=== PATIENT | male | born 1975 | race African-American/Black ===

== ENCOUNTER 2020-04-04 22:03 | Emergency (ER) | payer SELFPAY ==
[~2020-04-04] VITALS: Ht 180.3 cm; Wt 127.0 kg
[2020-04-04 22:22] VITALS: BP 161/105
--- NOTE | 2020-04-04 22:49 | NUR ---
45 Y/O MALE CAME IN TO ER WITH COMPLAINTS OF LOWER BACK PAIN. 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 PAIN SUBSIDES WHEN SITTING/RESTING BUT WORSENS WITH LYING DOWN. REPORTS USING ICY HOT AND TYLENOL WITH MINIMAL RELIEF. REPORTS STRAINING BACK AT WORK LAST FRIDAY. NO PAST MEDICAL HISTORY, NO ALLERGIES. ASKING FOR DOCTORS NOTE TO BE EXCUSED FROM WORK FOR A WEEK.
[2020-04-04 23:51] VITALS: BP 147/95
--- NOTE | 2020-04-04 23:51 | NUR ---
Patient discharged with v/s stable. Written and verbal after care instructions given and explained. Patient alert, oriented and verbalized understanding of instructions. Ambulatory with steady gait. All questions addressed prior to discharge. ID band removed. Patient advised to follow up with PMD. Rx of FLEXERIL 10MG, AND TORADOL 10 MG given. Patient educated on indication of medication including possible reaction and side effects. Opportunity to ask questions provided and answered.
== END 2020-04-04 23:51 | disposition home or self-care (01) ==
LOC: MED 22:03
DX: M54.5 Low back pain (principal)
CPT/HCPCS: 99281; 99283

== ENCOUNTER 2022-03-28 14:12 | Emergency (ER) | payer SELFPAY ==
[~2022-03-28] VITALS: Ht 182.9 cm; Wt 130.6 kg
[2022-03-28 14:30] VITALS: BP 152/103
--- NOTE | 2022-03-28 14:35 | NUR ---
PT AMB TO BED 3
[2022-03-28 14:44] VITALS: BP 152/103
--- NOTE | 2022-03-28 14:44 | NUR ---
47/M WALKED IN C/O R KNEE PAIN X 1 MONTH. DENIES TRAUMA. STATES 710 PAIN. AAOX4, AMBULATORY.
[2022-03-28] MEDS ORDERED: ACETAMINOPHEN 325 MG TAB PO ONE (14:50)
--- NOTE | 2022-03-28 16:05 | NUR ---
Patient discharged with v/s stable. Written and verbal after care instructions given and explained. Patient verbalized understanding. Ambulatory with steady gait. All questions addressed prior to discharge. Advised to follow up with PMD.
== END 2022-03-28 16:05 | disposition home or self-care (01) ==
LOC: MED 14:12
DX: G89.29 Other chronic pain (principal); M25.561 Pain in right knee
CPT/HCPCS: 73562; 99283

== ENCOUNTER 2022-04-18 17:57 | Emergency (ER) | payer OTHER ==
[~2022-04-18] VITALS: Ht 182.9 cm; Wt 120.2 kg
[2022-04-18 19:30] VITALS: BP 137/84
--- NOTE | 2022-04-18 19:37 | NUR ---
TO LOBBY FOLLOWING TRIAGE
[2022-04-18] MEDS ORDERED: HYDROcodone/APAP 5/325 MG 1 TAB TAB PO ONE (20:00)
[2022-04-18] MEDS ORDERED: LID5T TP (21:09)
[2022-04-18] MEDS ORDERED: HYDROcodone/APAP 5/325 MG 1 TAB TAB ONE (21:48)
--- NOTE | 2022-04-18 22:05 | NUR ---
Patient discharged with v/s stable. Written and verbal after care instructions given and explained. Patient alert, oriented and verbalized understanding of instructions. Ambulatory with steady gait. All questions addressed prior to discharge. ID band removed. Patient advised to follow up with PMD. Rx of LIDODERM PATCH given. Patient educated on indication of medication including possible reaction and side effects. Opportunity to ask questions provided and answered.
== END 2022-04-18 22:05 | disposition home or self-care (01) ==
LOC: MED 17:57
DX: M25.561 Pain in right knee (principal)
CPT/HCPCS: 73562; 99283